=== PATIENT | male | born 1985 ===

== ENCOUNTER 2017-09-25 15:08 | Emergency (ER) | payer BC ==
[2017-09-25 15:20] VITALS: RESP 18; TEMP 98.6
[2017-09-25 16:47] VITALS: BP 146/101; PULSE 71; O2SAT 94
== END 2017-09-25 16:44 | disposition home or self-care (01) ==
LOC: ED 15:08
DX: R09.1 Pleurisy (principal)
CPT/HCPCS: 71101; 73030; 99282